=== PATIENT | female | born 1980 | race Caucasian/White ===

== ENCOUNTER 2017-11-09 18:24 | Emergency (ER) | payer BC ==
[~2017-11-09] VITALS: Ht 162.6 cm; Wt 62.6 kg
[2017-11-09 18:40] VITALS: Ht 162.6 cm; Wt 62.6 kg
[2017-11-09 21:24] LABS: microscopic required? NO
[2017-11-09 21:33] LABS: UA SPECIFIC GRAVITY <=1.005 (1.005-1.035); urine erythrocyte NEGATIVE (NEGATIVE)
[2017-11-09 21:38] LABS: BASOPHIL % 0.6 % (0-2); PLATELET COUNT 253 x10^3mcL (130-400); RED CELL DISTRIBUTION WIDTH 13.2 % (11.5-14.5)
[2017-11-09 21:48] LABS: CALCIUM 8.6 mg/dL (8.5-10.1); CARBON DIOXIDE 30.1 mmol/L (21-32); CHLORIDE SERUM 108 mmol/L (98-107); CREATININE SERUM 0.8 mg/dL (0.6-1.0); GFR1 > 60 mL/min; GLUCOSE SERUM 78 mg/dL (74-106); POTASSIUM SERUM 3.7 mmol/L (3.5-5.1); SODIUM SERUM 144 mmol/L (136-145)
[2017-11-09 21:55] LABS: ALBUMIN 3.7 g/dL (3.4-5.0); ALKALINE PHOSPHATASE 68 U/L (46-116); ALT/SGPT 16 U/L (14-59); AST/SGOT 16 U/L (15-37); LIPASE 176 IU/L (73-393); TOTAL PROTEIN, SERUM 6.6 g/dL (6.4-8.2)
[2017-11-10 00:23] VITALS: BP 123/77
== END 2017-11-10 00:05 | disposition home or self-care (01) ==
LOC: ED 18:24
PROVIDERS: Emergency Medicine Emergency Medical Services
DX: N94.0 Mittelschmerz (principal); K21.9 Gastro-esophageal reflux disease without esophagitis; F32.9 Major depressive disorder, single episode, unspecified
CPT/HCPCS: J1885; J2270; J2405; Q0092